=== PATIENT | male | born 1950 | race Caucasian/White ===

== ENCOUNTER 2016-10-05 09:46 | Emergency (ER) | payer MEDICARE, OTHER ==
[~2016-10-05] VITALS: Ht 190.5 cm; Wt 90.7 kg
[~2016-10-05 09:46] MED LIST: AMLO5TAB2 PO; ASCO100T4 PO; ASPI-3 PO; IBUP100T PO; TRIA1CAP3 PO
[2016-10-05 09:50] VITALS: BP 139/72
--- NOTE | 2016-10-05 10:10 | PHYS DOC ---
Past Medical History Past Medical History: Hypertension Additional Past Medical Histor: AAA, ANEURYSM LEFT RENAL ARTERY, Large ventral hernia Past Surgical History: Other Additional Past Surgical Histo: AAA repair Alcohol Use: Heavy Drug Use: None Adult General Chief Complaint Chief Complaint: SKIN PROBLEM HPI HPI Patient is a 66 year old male who presents by EMS for bleeding from his abdominal wall. He has a large ventral hernia for years. Recently, he sustained an abrasion to the lower aspect of abdominal wall that droops into his pants while zipping his jeans. He has a scab at that site that started bleeding in his sleep today. He woke with blood on his pants and wet sensation. He applied pressure with a napkin en route. He states he is to finally see a surgeon to discuss surgical repair of hernia. He denies lightheadedness, dyspnea, fatigue, constipation, trauma. No other easy bruising or bleeding. Review of Systems Review of Systems Constitutional: Denies fever or chills [] Eyes: Denies change in visual acuity, redness, or eye pain [] HENT: Denies nasal congestion or sore throat [] Respiratory: Denies cough or shortness of breath [] Cardiovascular: No additional information not addressed in HPI [] GI: Denies abdominal pain, nausea, vomiting, bloody stools or diarrhea [] : Denies dysuria or hematuria [] Musculoskeletal: Denies back pain or joint pain [] Integument: Denies rash [] Neurologic: Denies headache, focal weakness or sensory changes [] Endocrine: Denies polyuria or polydipsia [] Allergies Allergies Allergies Coded Allergies Type Severity Reaction Last Updated Verified lisinopril Allergy Severe Anaphylaxis 10/01/13 Yes olmesartan medoxomil Allergy Severe Anaphylaxis 10/01/13 Yes Physical Exam Physical Exam Constitutional: Well developed, well nourished, no acute distress, non-toxic appearance. [] HENT: Normocephalic, atraumatic, bilateral external ears normal, oropharynx moist, nose normal. [] Eyes: PERRLA, EOMI. [] Neck: Normal range of motion, supple. [] Cardiovascular:Heart rate regular rhythm [] Lungs & Thorax: Bilateral breath sounds clear to auscultation [] Abdomen: Bowel sounds normal, soft, no tenderness. Thin habitus with large and low hanging ventral hernia with no tenderness; has abrasion overlying a superficial vein that is hemostatic with dried blood located to lowest hanging portion of abdominal wall, no surrounding tenderness/erythema/induration [] Skin: Warm, dry, no erythema, no rash. [] Back: Normal rom. [] Extremities: ROM intact, no edema. [] Neurologic: Alert and oriented X 3, normal motor function, normal sensory function, no focal deficits noted. [] Psychologic: Affect normal, judgement normal, mood normal. [] Current Patient Data Vital Signs Vital Signs Date Time Temp Pulse Resp B/P Pulse Ox O2 Delivery O2 Flow Rate FiO2 10/05/16 09:50 98.3 69 20 139/72 97 Room Air 98.3 Course & Med Decision Making Course & Med Decision Making Wound is currently hemostatic. Discussed local wound care. Return precautions given. He understands and agrees with plan. Dragon Disclaimer Dragon Disclaimer This electronic medical record was generated, in whole or in part, using a voice recognition dictation system. Departure Departure Impression: Primary Impression: Abrasion of abdominal wall, initial encounter Disposition: HOME, SELF-CARE Condition: STABLE Referrals: JESSE EL (PCP) Patient Instructions: Abrasion, [id number] Additional Instructions: Follow-up with your primary care doctor. Return for any concerns. Jannette MARS MD Oct 05, 2016 10:10
== END 2016-10-05 10:32 | disposition home or self-care (01) ==
LOC: ER 09:46
DX: S30.811A Abrasion of abdominal wall, initial encounter (principal); I10 Essential (primary) hypertension; K43.9 Ventral hernia without obstruction or gangrene; I71.4 Abdominal aortic aneurysm, without rupture; Z98.890 Other specified postprocedural states; F10.10 Alcohol abuse, uncomplicated; Z88.8 Allergy status to other drugs, medicaments and biological substances; X58.XXXA Exposure to other specified factors, initial encounter; Y93.89 Activity, other specified; Y99.8 Other external cause status; Y92.89 Other specified places as the place of occurrence of the external cause
CPT/HCPCS: 99284

== ENCOUNTER → 2016-10-13 | Outpatient (CLI) | payer MEDICARE, OTHER ==
[2016-10-05 09:50] VITALS: BP 139/72
[2016-10-13 10:37] LABS: BASO # 0.1 x10^3/uL (0.0-0.2); BASO % 1 % (0-3); EOS % 3 % (0-3); HEMATOCRIT 40.9 % (39.0-53.0); HEMOGLOBIN 13.3 g/dL (13.0-17.5); LYMPH % 15 % (24-48); MEAN CORPUSCULAR HEMOGLOBIN 28 pg (25-35); MEAN CORPUSCULAR HGB CONC 33 g/dL (31-37); MEAN CORPUSCULAR VOLUME 87 fL (79-100); MONO % 9 % (0-9); NEUT % 73 % (31-73); PLATELET COUNT 479 x10^3/uL (140-400); RED CELL DISTRIBUTION WIDTH 15.4 % (11.5-14.5); WHITE BLOOD COUNT 13.3 x10^3/uL (4.0-11.0)
[2016-10-13 11:06] LABS: ALBUMIN 3.1 g/dL (3.4-5.0); ALBUMIN/GLOBULIN RATIO 0.6 (1.0-1.7); CALCIUM 9.3 mg/dL (8.5-10.1); CREATININE 0.8 mg/dL (0.7-1.3); POTASSIUM 4.2 mmol/L (3.5-5.1); TOTAL BILIRUBIN 0.3 mg/dL (0.2-1.0); TOTAL PROTEIN 8.1 g/dL (6.4-8.2)
[2016-10-13 11:07] LABS: CHOLESTEROL/HDL RATIO 4.6
== END | disposition home or self-care (01) ==
LOC: LAB 09:52
DX: Z11.59 Encounter for screening for other viral diseases (principal); J44.9 Chronic obstructive pulmonary disease, unspecified; I73.9 Peripheral vascular disease, unspecified
CPT/HCPCS: 36415; 80053; 80061; 85027; 86803

== ENCOUNTER 2018-02-26 07:09 | Emergency (ER) | payer MEDICARE, OTHER ==
[2018-02-26] MEDS: IBUPROFEN 400 MG TABLET. PO (08:18)
== END 2018-02-26 09:27 | disposition home or self-care (01) ==
LOC: ER 09:27
DX: S63.501A Unspecified sprain of right wrist, initial encounter (principal); I10 Essential (primary) hypertension; J44.9 Chronic obstructive pulmonary disease, unspecified; Z88.8 Allergy status to other drugs, medicaments and biological substances; V59.88XA Occupant (driver) (passenger) of pick-up truck or van injured in other specified transport accidents, initial encounter; Y93.89 Activity, other specified; Y99.8 Other external cause status; Y92.488 Other paved roadways as the place of occurrence of the external cause
CPT/HCPCS: 29125; 73130; 99284-25

== ENCOUNTER 2018-05-01 08:54 | Emergency (ER) | payer MEDICARE, OTHER ==
[~2018-05-01] VITALS: Ht 190.5 cm; Wt 79.4 kg
[~2018-05-01 08:54] MED LIST changes: -AMLO5TAB2 PO; +AMLO5TAB7 PO
[2018-05-01 09:20] VITALS: BP 147/65
--- NOTE | 2018-05-01 09:58 | PHYS DOC ---
Past Medical History Past Medical History: COPD, Hypertension Additional Past Medical Histor: AAA, ANEURYSM LEFT RENAL ARTERY, Large ventral hernia Past Surgical History: Other Additional Past Surgical Histo: AAA repair Alcohol Use: Heavy Drug Use: None Adult General Chief Complaint Chief Complaint: KNEE INJURY HPI HPI Patient is a 67 year old male who presents with left knee pain with unknown injury since yesterday. Patient states when he sitting the pain is a 4 out of 10 and when he tries to stand and is 10 out of 10. Patient states he typically wears support stockings but is not wearing them today because is going to painful to put around. Review of Systems Review of Systems Constitutional: Denies fever or chills [] Eyes: Denies change in visual acuity, redness, or eye pain [] HENT: Denies nasal congestion or sore throat [] Respiratory: Denies cough or shortness of breath [] Cardiovascular: No additional information not addressed in HPI [] GI: Denies abdominal pain, nausea, vomiting, bloody stools or diarrhea [] : Denies dysuria or hematuria [] Musculoskeletal: Denies back pain. Left knee joint pain [] Integument: Denies rash or skin lesions [] Neurologic: Denies headache, focal weakness or sensory changes [] Endocrine: Denies polyuria or polydipsia [] All other systems were reviewed and found to be within normal limits, except as documented in this note. Current Medications Current Medications Current Medications Medications (Trade) Dose Ordered Sig/[facility] Start Time Stop Time Status Last Admin Dose Admin Tramadol HCl (Ultram) 50 mg 1X ONCE 05/01/18 10:00 05/01/18 10:01 DC 05/01/18 10:21 50 MG Allergies Allergies Allergies Coded Allergies Type Severity Reaction Last Updated Verified lisinopril Allergy Severe Anaphylaxis 05/01/18 Yes olmesartan medoxomil Allergy Severe Anaphylaxis 05/01/18 Yes Physical Exam Physical Exam Constitutional: Well developed, well nourished, no acute distress, non-toxic appearance. [] HENT: Normocephalic, atraumatic, bilateral external ears normal, oropharynx moist, no oral exudates, nose normal. [] Eyes: PERRLA, EOMI, conjunctiva normal, no discharge. [] Neck: Normal range of motion, no tenderness, supple, no stridor. [] Cardiovascular:Heart rate regular rhythm, no murmur [] Lungs & Thorax: Bilateral breath sounds clear to auscultation [] Abdomen: Bowel sounds normal, soft, no tenderness, no masses, no pulsatile masses. [] Skin: Warm, dry, no erythema, no rash. [] Back: No tenderness, no CVA tenderness. [] Extremities: Left knee tenderness, no cyanosis, no clubbing, ROM intact, no edema. [] Neurologic: Alert and oriented X 3, normal motor function, normal sensory function, no focal deficits noted. [] Psychologic: Affect normal, judgement normal, mood normal. [] Current Patient Data Vital Signs Vital Signs Date Time Temp Pulse Resp B/P (MAP) Pulse Ox O2 Delivery O2 Flow Rate FiO2 05/01/18 10:21 18 95 Room Air 05/01/18 09:20 97.7 63 147/65 (92) 97.7 EKG EKG [] Radiology/Procedures Radiology/Procedures Left knee Impressions: [facility] [address] [place], [place] [id number] IMAGING REPORT Signed PATIENT: MILLY ROD ACCOUNT: [id number] : 1950 LOCATION: ER AGE: 67 SEX: M EXAM STATUS: REG ER ORD. PHYSICIAN: VICTOR MANUEL DUNHAM APRN REASON: pain PROCEDURE: KNEE LEFT 4V EXAM: AP, oblique, lateral and tangential patellar views left knee DATE: 05/01/2018 9:55 AM INDICATION: LT KNEE PAIN SINCE YESTERDAY. NO KNOWN INJURY COMPARISON: No Prior FINDINGS: No evidence of acute fracture or dislocation. Mild medial compartment joint space narrowing. Tricompartmental osteophytes are seen. Small left knee joint effusion. Neutral patellar tracking. Patellar enthesopathy. Atherosclerotic vascular calcifications are seen.. IMPRESSION: 1. No evidence of acute fracture or dislocation. 2. Small left knee joint effusion. 3. Left knee joint osteoarthritis with moderate medial compartment joint space narrowing. Electronically signed by: Castillo Dunbar MD (05/01/2018 10:15 AM) [id number] DICTATED and SIGNED BY: CASTILLO DUNBAR MD DATE: 05/01/18 1014 Course & Med Decision Making Course & Med Decision Making Patient is a 67 year old male who presents with left knee pain with unknown injury since yesterday. Patient states when he sitting the pain is a 4 out of 10 and when he tries to stand and is 10 out of 10. Patient states he typically wears support stockings but is not wearing them today because is going to painful to put around. Patient's leg does not look swollen but he has many varicose veins all over his left leg. Patient only has anterior knee pain does not wrap around to the back of the knee. Patient states that he works on [employer] and states that it's possible that he banged it on something. Patient states he did not drive himself here. Patient is a history of hypertension, emphysema, he is allergic to lisinopril. Patient states he still smokes, uses occasional EtOH, but denies drug use. Knee x ray shows 1. No evidence of acute fracture or dislocation.2. Small left knee joint effusion.3. Left knee joint osteoarthritis with moderate medial compartment joint space narrowing. Patient will be put on prednisone and is to follow up with his primary care physician or Orthopedics. [] Dragon Disclaimer Dragon Disclaimer This electronic medical record was generated, in whole or in part, using a voice recognition dictation system. Departure Departure Impression: Primary Impression: Knee pain, acute Additional Impression: Arthritis Disposition: 01 HOME, SELF-CARE Condition: STABLE Referrals: UNKNOWN PCP NAME (PCP) SCOTT SMITH MD Patient Instructions: Arthritis, Degenerative-Brief Additional Instructions: FOLLOW UP WITH ORTHO. TAKE MEDICATIONS PRESCRIBED. Scripts Prednisone (PREDNISONE) 50 Mg Tablet 1 TAB PO DAILY, #5 TAB Prov: VICTOR MANUEL DUNHAM APRN 05/01/18 Tramadol Hcl (TRAMADOL HCL) 50 Mg Tablet 50 MG PO Q6HRS PRN for PAIN, #10 TAB Prov: VICTOR MANUEL DUNHAM APRN 05/01/18 Problem Qualifiers Primary Impression: Knee pain, acute Laterality: left Qualified Codes: M25.562 - Pain in left knee VICTOR MANUEL DUNHAM APRN May 01, 2018 09:58
[2018-05-01] MEDS ORDERED: traMADol 50 MG TABLET PO ONE (10:00)
--- NOTE | 2018-05-01 10:18 | RAD ---
EXAM: AP, oblique, lateral and tangential patellar views left knee DATE: 05/01/2018 9:55 AM INDICATION: LT KNEE PAIN SINCE YESTERDAY. NO KNOWN INJURY COMPARISON: No Prior FINDINGS: No evidence of acute fracture or dislocation. Mild medial compartment joint space narrowing. Tricompartmental osteophytes are seen. Small left knee joint effusion. Neutral patellar tracking. Patellar enthesopathy. Atherosclerotic vascular calcifications are seen.. IMPRESSION: 1. No evidence of acute fracture or dislocation. 2. Small left knee joint effusion. 3. Left knee joint osteoarthritis with moderate medial compartment joint space narrowing. Electronically signed by: Castillo Ibrahim MD (05/01/2018 10:15 AM) [id number]
[2018-05-01] MEDS ORDERED: TRAM50TA PO (10:35)
[2018-05-01] MEDS ORDERED: PRED50TA PO (10:35)
== END 2018-05-01 11:29 | disposition home or self-care (01) ==
LOC: ER 08:54
DX: M17.12 Unilateral primary osteoarthritis, left knee (principal); M25.562 Pain in left knee; J44.9 Chronic obstructive pulmonary disease, unspecified; I10 Essential (primary) hypertension; Z88.8 Allergy status to other drugs, medicaments and biological substances
CPT/HCPCS: 73564; 99284

== ENCOUNTER 2018-07-10 13:56 | Emergency (ER) | payer MEDICARE, OTHER ==
[~2018-07-10] VITALS: Ht 190.5 cm; Wt 79.4 kg
[~2018-07-10 13:56] MED LIST changes: +PRED50TA PO; +TRAM50TA PO
[2018-07-10] MEDS ORDERED: methylPREDNISolone SOD SUCC PF 125 MG/2 ML VIAL. IV ONE (14:30)
[2018-07-10] MEDS ORDERED: IPRATRPIUM/ALBUTEROL 0.5/2.5MG 3 ML NEBU. NEB ONE ×2 (14:30→14:45)
[2018-07-10 14:47] LABS: BASE EXCESS ABG 2 mmol/L (-3-3); HCO3 ABG 27 mmol/L (21-28); PCO2 ABG 45 mmHg (35-46); PO2 ABG 84 mmHg (65-108); SAT O2 ABG 96 % (92-99)
[2018-07-10 14:51] LABS: FIO2 ABG 36
--- NOTE | 2018-07-10 14:54 | RAD ---
EXAM: CHEST PA LATERAL DATE: 07/10/2018 2:25 PM INDICATION: INCREASED SHORTNESS OF AIR X 3 DAYS. HX COPD, HTN COMPARISON: 10/01/2013 FINDINGS/ IMPRESSION: The heart is not enlarged. Mediastinal and hilar contours are stable. Atherosclerotic calcifications of aorta are seen. Mild patchy infrahilar opacities are seen bilaterally. No pleural effusion or pneumothorax. Degenerative changes of the spine are seen with anterior endplate osteophytes. Electronically signed by: Castillo Ibrahim MD (07/10/2018 2:50 PM) [facility]
--- NOTE | 2018-07-10 15:00 | PHYS DOC ---
Past Medical History Past Medical History: COPD, High Cholesterol, Hypertension Additional Past Medical Histor: AAA, ANEURYSM LEFT RENAL ARTERY, Large ventral hernia Past Surgical History: Other Additional Past Surgical Histo: AAA repair Smoking: Cigarettes, 1 Pack Per Day Additional Information: 08/16 PPD. Alcohol Use: Heavy Additional Information: Pt. states, "Very little. This week I did. I drank about a fifth over 5 days. Generally I have about 2 a week." Drug Use: None Adult General Chief Complaint Chief Complaint: SHORTNESS OF BREATH HPI HPI Patient is a 68-year-old male, who has a history of COPD and unfortunately is a current smoker, who presents to the emergency department for evaluation. He states over the past several days he has had increasing shortness of breath, accompanied by a mostly nonproductive cough, but occasionally productive of whitish sputum. He has not had any pain, including any chest pain or pleuritic pain. He does have some chronic edema to his legs, left greater than right, but this is not a new problem. His legs are mostly similar to prior baseline. He does report orthopnea, but states he thinks that this is more his breathing than his chest. He has never had any heart attacks, and does not have a history of congestive heart failure. He takes medications for hypertension and hyperlipidemia as well as COPD. Exertion seems to worsen her shortness of breath as well. There are no alleviating factors to his symptoms otherwise. Review of Systems Review of Systems Constitutional: Denies fever or chills [] Eyes: Denies change in visual acuity, redness, or eye pain [] HENT: Denies nasal congestion or sore throat [] Respiratory: No additional information not addressed in HPI[] Cardiovascular: Denies chest pain, pleuritic pain, or new edema [] GI: Denies abdominal pain, nausea, vomiting, bloody stools or diarrhea [] : Denies dysuria or hematuria [] Musculoskeletal: Denies back pain or joint pain [] Integument: Denies rash or skin lesions [] Neurologic: Denies headache, focal weakness or sensory changes [] Endocrine: Denies polyuria or polydipsia [] All other systems were reviewed and found to be within normal limits, except as documented in this note. Current Medications Current Medications Current Medications Medications (Trade) Dose Ordered Sig/[facility] Start Time Stop Time Status Last Admin Dose Admin Albuterol/ Ipratropium (Duoneb) 3 ml 1X ONCE 07/10/18 14:45 07/10/18 14:46 DC 07/10/18 15:05 3 ML Azithromycin 250 ml @ 250 mls/hr 1X ONCE 07/10/18 15:45 07/10/18 16:44 Ceftriaxone Sodium 50 ml @ 100 mls/hr 1X ONCE 07/10/18 15:45 07/10/18 16:14 Methylprednisolone Sodium Succinate (SOLU-Medrol 125MG VIAL) 125 mg 1X ONCE 07/10/18 14:30 07/10/18 14:31 DC 07/10/18 15:31 125 MG Allergies Allergies Allergies Coded Allergies Type Severity Reaction Last Updated Verified lisinopril Allergy Severe Anaphylaxis 05/01/18 Yes olmesartan medoxomil Allergy Severe Anaphylaxis 05/01/18 Yes Physical Exam Physical Exam PHYSICAL EXAM: CONSTITUTIONAL: Well developed, well nourished HEAD: normocephalic, atraumatic EENT: PERRL, EOMI. Conjunctivae normal color, sclerae non-icteric; moist mucous membranes. NECK: Supple, non-tender; no meningismus. LUNGS: There are globally diminished breath sounds, with some rhonchi in the bases bilaterally. There are no definite wheezes or rales. Breathing is moderately labored. HEART: Regular rate and rhythm, no murmur CHEST: No deformity; non-tender ABDOMEN: The abdomen is soft, and non-tender, no masses or bruits. EXTREM: Normal ROM; no deformity, no calf tenderness. Normal pulses palpable in all extremities. There is mild edema to the left leg, and trace edema to the right leg, with changes of chronic venous stasis in the lower extremities left greater than right. SKIN: No rash; no diaphoresis NEURO: Alert; normal speech and cognition; CN's grossly intact; strength grossly intact without focal deficit. BACK: No CVA TTP. Current Patient Data Vital Signs Vital Signs Date Time Temp Pulse Resp B/P (MAP) Pulse Ox O2 Delivery O2 Flow Rate FiO2 07/10/18 15:07 94 Nasal Cannula 4.0 07/10/18 14:14 98.3 78 24 171/76 (107) 98.3 Lab Values Laboratory Tests Test 07/10/18 14:40 07/10/18 15:15 O2 Saturation 96 % (92-99) Arterial Blood pH 7.40 (7.35-7.45) Arterial Blood pCO2 at Patient Temp 45 mmHg (35-46) Arterial Blood pO2 at Patient Temp 84 mmHg (65-108) Arterial Blood HCO3 27 mmol/L (21-28) Arterial Blood Base Excess 2 mmol/L (-3-3) FiO2 36 White Blood Count 9.7 x10^3/uL (4.0-11.0) Red Blood Count 4.67 x10^6/uL (4.30-5.70) Hemoglobin 14.2 g/dL (13.0-17.5) Hematocrit 42.5 % (39.0-53.0) Mean Corpuscular Volume 91 fL (79-100) Mean Corpuscular Hemoglobin 31 pg (25-35) Mean Corpuscular Hemoglobin Concent 34 g/dL (31-37) Red Cell Distribution Width 16.2 % (11.5-14.5) H Platelet Count 239 x10^3/uL (140-400) Neutrophils (%) (Auto) 78 % (31-73) H Lymphocytes (%) (Auto) 8 % (24-48) L Monocytes (%) (Auto) 11 % (0-9) H Eosinophils (%) (Auto) 2 % (0-3) Basophils (%) (Auto) 1 % (0-3) Neutrophils # (Auto) 7.6 x10^3uL (1.8-7.7) Lymphocytes # (Auto) 0.8 x10^3/uL (1.0-4.8) L Monocytes # (Auto) 1.0 x10^3/uL (0.0-1.1) Eosinophils # (Auto) 0.2 x10^3/uL (0.0-0.7) Basophils # (Auto) 0.1 x10^3/uL (0.0-0.2) Sodium Level 141 mmol/L (136-145) Potassium Level 4.5 mmol/L (3.5-5.1) Chloride Level 102 mmol/L (98-107) Carbon Dioxide Level 28 mmol/L (21-32) Anion Gap 11 (6-14) Blood Urea Nitrogen 17 mg/dL (8-26) Creatinine 0.6 mg/dL (0.7-1.3) L Estimated GFR (Cockcroft-Gault) 134.4 BUN/Creatinine Ratio 28 (6-20) H Glucose Level 94 mg/dL (70-99) Calcium Level 9.1 mg/dL (8.5-10.1) Total Bilirubin 0.4 mg/dL (0.2-1.0) Aspartate Amino Transferase (AST) 22 U/L (15-37) Alanine Aminotransferase (ALT) 20 U/L (16-63) Alkaline Phosphatase 78 U/L (46-116) Creatine Kinase 115 U/L (39-308) Creatine Kinase MB (Mass) 3.8 ng/mL (0.0-3.6) H Creatine Kinase MB Relative Index 3.3 % (0-4) Troponin I Quantitative < 0.017 ng/mL (0.000-0.055) CI-Pre-B-Type Natriuretic Peptide 190 pg/mL (0-124) H Total Protein 7.7 g/dL (6.4-8.2) Albumin 3.6 g/dL (3.4-5.0) Albumin/Globulin Ratio 0.9 (1.0-1.7) L Laboratory Tests 07/10/18 15:15 Laboratory Tests 07/10/18 15:15 EKG EKG [EKG is significantly limited secondary to the patient's respiratory movement. There ] appears to be normal sinus rhythm at a rate of 69 beats for minute, normal axis, normal intervals, without acute ischemic ST/T changes. Radiology/Procedures Radiology/Procedures [PROCEDURE: CHEST PA & LATERAL EXAM: CHEST PA LATERAL DATE: 07/10/2018 2:25 PM INDICATION: INCREASED SHORTNESS OF AIR X 3 DAYS. HX COPD, HTN COMPARISON: 10/01/2013 FINDINGS/ IMPRESSION: The heart is not enlarged. Mediastinal and hilar contours are stable. Atherosclerotic calcifications of aorta are seen. Mild patchy infrahilar opacities are seen bilaterally. No pleural effusion or pneumothorax. Degenerative changes of the spine are seen with anterior endplate osteophytes. ] Course & Med Decision Making Course & Med Decision Making Pertinent Labs and Imaging studies reviewed. (See chart for details) [4:05 PM: The patient's condition remained stable. He is still somewhat dyspneic but his vitals including his oxygen saturation remained stable. He does have oxygen at home. He also has a nebulizer machine at home. I recommended he stay in the hospital overnight for further treatment due to his persistent dyspnea but he adamantly refused. I have a extensive discussion with the patient about the risks of leaving AGAINST MEDICAL ADVICE, but the patient expressed understanding, stating he needs to leave because he has nobody to take care of his mother and take her to dialysis. I will attempt to treat the patient is optimally as I can, but this is suboptimal and he is aware of that. I stressed importance of close follow-up as well as smoking cessation and return precautions were discussed in detail.] Dragon Disclaimer Dragon Disclaimer This electronic medical record was generated, in whole or in part, using a voice recognition dictation system. Departure Departure Impression: Primary Impression: COPD exacerbation Disposition: AGAINST MEDICAL ADVICE Condition: STABLE Referrals: WOODY VIERA DO (PCP) LOIS CASTELAN MD Patient Instructions: Chronic Obstructive Pulmonary Disease Exacerbation, Smoking Cessation Scripts Ipratropium/Albuterol Sulfate (DUONEB 0.5-3(2.5) MG/3 ML) 3 Ml Ampul.neb 3 ML NEB QID, #30 EACH Prov: BENI FLORES MD 07/10/18 Prednisone (PREDNISONE) 20 Mg Tablet 40 MG PO DAILY for 5 Days, #10 TAB Prov: BENI FLORES MD 07/10/18 Azithromycin (AZITHROMYCIN TABLET) 250 Mg Tablet 1 PKG PO UD, #6 TAB Prov: BENI FLORES MD 07/10/18 BENI FLORES MD Jul 10, 2018 15:00
--- NOTE | 2018-07-10 15:07 | EKG ---
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
[2018-07-10 15:35] LABS: BASO # 0.1 x10^3/uL (0.0-0.2); BASO % 1 % (0-3); EOS # 0.2 x10^3/uL (0.0-0.7); EOS % 2 % (0-3); HEMATOCRIT 42.5 % (39.0-53.0); HEMOGLOBIN 14.2 g/dL (13.0-17.5); LYMPH # 0.8 x10^3/uL (1.0-4.8); LYMPH % 8 % (24-48); MEAN CORPUSCULAR HEMOGLOBIN 31 pg (25-35); MEAN CORPUSCULAR HGB CONC 34 g/dL (31-37); MEAN CORPUSCULAR VOLUME 91 fL (79-100); MONO % 11 % (0-9); NEUT # 7.6 x10^3uL (1.8-7.7); NEUT % 78 % (31-73); PLATELET COUNT 239 x10^3/uL (140-400); RED BLOOD COUNT 4.67 x10^6/uL (4.30-5.70); RED CELL DISTRIBUTION WIDTH 16.2 % (11.5-14.5); WHITE BLOOD COUNT 9.7 x10^3/uL (4.0-11.0)
[2018-07-10 15:44] LABS: CALCIUM 9.1 mg/dL (8.5-10.1); CREATININE 0.6 mg/dL (0.7-1.3); GFR 134.4; POTASSIUM 4.5 mmol/L (3.5-5.1)
[2018-07-10] MEDS ORDERED: AZITHRMYCN 500MG IVPB FOR OMNI 250 ML IV ONE (15:45)
[2018-07-10 15:50] LABS: ALBUMIN 3.6 g/dL (3.4-5.0); ALBUMIN/GLOBULIN RATIO 0.9 (1.0-1.7); TOTAL BILIRUBIN 0.4 mg/dL (0.2-1.0); TOTAL PROTEIN 7.7 g/dL (6.4-8.2)
[2018-07-10] MEDS ORDERED: AZIT250T6 PO (16:13)
[2018-07-10] MEDS ORDERED: IPRA3AMP29 NEB (16:13)
[2018-07-10] MEDS ORDERED: PRED20TA PO (16:13)
[2018-07-10 16:36] VITALS: BP 148/67
--- NOTE | 2018-07-11 07:46 | EKG ---
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
== END 2018-07-10 17:37 | disposition left against medical advice (07) ==
LOC: ER 13:56
DX: J44.1 Chronic obstructive pulmonary disease with (acute) exacerbation (principal); F17.210 Nicotine dependence, cigarettes, uncomplicated; E78.00 Pure hypercholesterolemia, unspecified; I10 Essential (primary) hypertension; F10.20 Alcohol dependence, uncomplicated; Z88.8 Allergy status to other drugs, medicaments and biological substances; Y90.9 Presence of alcohol in blood, level not specified
CPT/HCPCS: 36415; 36600; 71046; 80053; 82553; 82805; 83880; 84484; 85025; 93005; 94640; 96365; 96367; 96375; 99284; J0456; J0690; J2930; J7620; 96368